=== PATIENT | male | born 1975 | race Hispanic/Latino ===

== ENCOUNTER 2021-12-07 10:17 | Day surgery (SDC) | payer MEDICAID ==
[~2021-12-07 10:17] MED LIST: SODIUM CHLORIDE 0.9% 1000 ML 1,000 ML IV SCH
[2021-12-07] MEDS ORDERED: LIDOCAINE MPF (2%) 20 MG/1 ML VIAL 5 ML ONE (11:30)
--- NOTE | 2021-12-07 11:30 | Anesthesia Consultation ---
Anesthesia Consult and Med Hx Date of service: 12/07/21 - Airway Anesthetic Teeth Evaluation: Poor (multiple missing and decayint teeth; denies loose teeth) ROM Head & Neck: Adequate Mental/Hyoid Distance: Adequate Mallampati Class: Class II Intubation Access Assessment: Probably Good - Pre-Operative Health Status ASA Pre-Surgery Classification: ASA2 Proposed Anesthetic Plan: MAC - Pulmonary Hx Smoking: Yes (1/2 PPD) Hx Respiratory Symptoms: No - Cardiovascular System Hx Hypertension: No - Central Nervous System CVA: No - Endocrine Hx Renal Disease: No Hx Liver Disease: No Hx Insulin Dependent Diabetes: No Hx Non-Insulin Dependent Diabetes: No Hx Thyroid Disease: No - Other Systems Hx Obesity: Yes (BMI 33) - Additional Comments Anesthesia Medical History Comments: No hx anesthetic complications.
--- NOTE | 2021-12-07 11:31 | Anesthesia Day of Surgery ---
Anesthesia Day of Surgery - Day of Surgery Patient Examined: Yes Patient H&P Reviewed: Yes Patient is NPO: Yes
[2021-12-07] MEDS ORDERED: propofoL 200 MG/20 ML VIAL IV ONE (12:17)
--- NOTE | 2021-12-07 12:46 | Procedure Note ---
Date of procedure: 12/07/21 Pre-op diagnosis: Hemetamesis Post-op diagnosis: other (No Peptic Ulcer disease noted/ No Jennifer Martha tear noted/ Mild, Ana Esophagitis/ Mild to Moderate Erosive Esophagitis/ Gastritis/ R/o Eosinophilic esophagitis) Procedure: EGD with Biopsy Anest[place]: [facility] [place] Surgeon: NICOLA CRUZ Estimated blood loss: minimal Pathology: list Specimen disposition: to lab Condition: stable Disposition: same day (Treat with fluconazole and PPI. Avoid aspirin and NSAID for 5 days, otherwise resume previous medication and advice poatient to avoid smoking and F/U in 1 to 2 weeks ([phone]).)
--- NOTE | 2021-12-07 13:25 | Operative Report ---
DATE OF SURGERY: 12/07/2021 PROCEDURE PERFORMED: EGD with biopsy. INDICATIONS: A 46-year-old white male who has a history of smoking. Denies history of alcohol use, who recently had an acute attack of diverticulitis that had prompted him to go to the hospital. Shortly afterwards, the patient had hematemesis. He denies history of NSAID use or alcohol use. EGD was done to assess for the source of gastrointestinal bleeding. DESCRIPTION OF PROCEDURE: Procedure was done after getting informed consent with MAC anesthesia. The instrument was passed through the hypopharynx into the esophagus, which showed some mild Ana esophagitis. Photodocumentation and biopsy was obtained. The esophagus in the distal part showed [id number] distal erosive esophagitis. Photodocumentation and biopsy was done from the distal esophagus to assess for the severity of the erosive esophagitis and also to rule out for eosinophilic esophagitis. The stomach showed antral gastritis. No peptic ulcer disease was noted in the straight or the retroverted view. Pylorus is patent. Duodenum in the first and second portion appeared normal. There was no duodenal ulcer noted. Biopsy was done from the gastric antrum, gastric body and angular incisura to rule out for H. pylori and atrophic gastritis. ASSESSMENT: Hematemesis, no active upper gastrointestinal bleeding noted. It is possible that the patient may have had a Jennifer-Gibson tear previously, which appears to have healed. No peptic ulcer disease noted. Mild Ana esophagitis, [id number] erosive esophagitis, gastritis, rule out eosinophilic esophagitis. PLAN: To treat the patient with PPI. Also, with fluconazole. Have the patient avoid aspirin and aspirin-related products for the next few days. The patient will also be advised to refrain from smoking and follow up in the office in 1-2 weeks' time. Procedure was done in the GI lab with assistance of the GI lab team, which included the GI nurse, the technical manager chemical plant and with assistance of anesthesia. TID: [id number] RECEIPT: [id number] NAVARRO
[2021-12-07 14:58] VITALS: BP 121/72
--- NOTE | 2021-12-07 16:50 | Post Anesthesia Evaluation ---
- Post Anesthesia Evaluation Patient Participated: Yes Airway Patent: Yes Stable Respiratory Function: Yes Nausea/Vomiting: No Temp > 96.8F: Yes Pain Manageable: Yes Adequeate Hydration: Yes Anesthesia Complications: No
== END 2021-12-07 13:05 | disposition home or self-care (01) ==
LOC: GIO 10:17
DX: K29.50 Unspecified chronic gastritis without bleeding (principal); K27.9 Peptic ulcer, site unspecified, unspecified as acute or chronic, without hemorrhage or perforation; K92.0 Hematemesis; K31.89 Other diseases of stomach and duodenum; K57.30 Diverticulosis of large intestine without perforation or abscess without bleeding; E66.9 Obesity, unspecified; F17.210 Nicotine dependence, cigarettes, uncomplicated; Z79.899 Other long term (current) drug therapy; Z68.33 Body mass index [BMI] 33.0-33.9, adult
CPT/HCPCS: 43239; 88305; 88342; J2704; J3490; J7030; J7120; Q0162